=== PATIENT | female | born 1990 | race Hispanic/Latino ===

== ENCOUNTER 2017-03-16 15:16 | Emergency (ER) | payer OTHER ==
[~2017-03-16] VITALS: Ht 162.6 cm; Wt 87.0 kg
[2017-03-16 15:35] VITALS: BP 100/65; PULSE 58; RESP 16; O2SAT 100
[2017-03-16 16:19] LABS: Mean Corpuscular Hemoglobin 30.2 pg (27.0-35.0); Mean Corpuscular Volume 89.3 fL (81-100)
--- NOTE | 2017-03-16 16:33 | ED.REPORT ---
HPI-Preg Under 20 Weeks Date of Service Mar 16, 2017 ED Provider: Jorge High DO Pt is a 7 weeks 5 day (by her last menstrual period) 26 year old female who presents to the ED c/o "spotting" vaginal bleeding onset last night. She had an episode of bleeding 7 days ago, and some spotting last night and this morning.She describes pain as intermittent and a "cramping" sensation in her abdomen. She denies nausea, vomiting, chest pain, cough, rash, or SOB. She was sent from the urgent clinic with LLQ tenderness. This is her first time at the doctor for this . She took a test at home two weeks ago, and it was positive. Pt reports taking vitamins, but denies any other medications. She had a for her last after being in labor for 3 days with no dilation of her cervix. She also has a history of STDs which required antibiotic treatment. Nursing Notes Stated Complaint: ABDOMINAL PAIN Chief Complaint: Female Abdominal Pain Nursing Notes Reviewed: Yes Allergies: Coded Allergies: No Known Allergies (Unverified , 03/16/17) No Active Prescriptions or Reported Meds General Time Seen by Provider: 16:33 Chief Complaint Vaginal bleeding Hx Obtained From: Patient, Spouse Arrived By: Walk-in Onset Occurred: Yesterday Recent Healthcare: Recent doctor visit Similar Sx Previous: No Past Medical History Past Medical History 7 weeks 3 days Past Surgical History Reports: Smoking History Unknown if Ever Smoker Social History Other Social History: Good social support Ambulatory Status Independent Review of Systems Respiratory: Denies: Non-productive cough, Prod cough, clear, Shortness of breath Cardiovascular: Denies: Chest pain GI: Reports: Abdominal pain, Denies: Nausea, Vomiting Female: Reports: , Vaginal bleeding - abnl Skin: Denies Rash Complete sys rev & neg: except as marked. Physical Exam Initial Vital Signs Vital Signs (First) Date Time Temp Pulse Resp B/P Pulse Ox O2 Delivery O2 Flow Rate FiO2 03/16/17 15:35 37.1 58 16 100/65 100 Room Air Initial VS: Reviewed, Vital signs normal Head / Eyes: Atraumatic, Normocephalic, PERRL ENT: Mucous membranes moist, Conjunctiva normal, No scleral icterus Neck: Supple, Non-tender, Full range of motion Extremities: Vascular intact, Neuro intact, No swelling, No tenderness Skin: Warm, Dry, No cyanosis Neurologic: Alert, Oriented, Nonfocal Psychiatric: Mood/affect normal, Behavior normal, Normal thought content General/Constitutional: Awake, Alert Appearance / Presentation: Positive: Appears older than age, Cachectic, Cyanotic, Intoxicated, Obese, morbidly Abdomen: Atraumatic, No guarding, No rebound Tenderness/Guarding/Rebound: Positive: Tender suprapubic Lower abdomen pain, left worse than right Lower Extremity / Pelvis / MS: Atraumatic, Inspection NL, Full range of motion , No edema Interpretation & Diagnostics Urine dip:3+ urine otherwise normal Lab Results Interpretation Result Diagram: 03/16/17 1605 03/16/17 1605 Test 03/16/17 16:05 03/16/17 17:01 White Blood Count 7.6th/mm3 (3.8-10.1) Red Blood Count 4.11mil/mm3 (3.90-5.20) Hemoglobin 12.4g/dL (12.0-15.6) Hematocrit 36.7% (35.0-46.0) Mean Corpuscular Volume 89.3fL (81-100) Mean Corpuscular Hemoglobin 30.2pg (27.0-35.0) Mean Corpuscular Hemoglobin Concent 33.8% (32.0-37.0) Red Cell Distribution Width 12.1% (12.3-15.4) Platelet Count 298bil/L (150-400) Sodium Level 135mEq/L (134-144) Potassium Level 3.9mEq/L (3.5-5.2) Chloride Level 99mEq/L (97-108) Carbon Dioxide Level 22mmol/L (18-29) Blood Urea Nitrogen 7mg/dL (6-20) Creatinine 0.48mg/dL (0.57-1.00) Estimat Glomerular Filtration Rate 224mL/min (>59) Glucose Level 96mg/dL (60-99) Calcium Level 9.5mg/dL (8.5-10.1) Total Bilirubin 0.3mg/dL (0.0-1.2) Aspartate Amino Transf (AST/SGOT) 17U/L (0-50) Alanine Aminotransferase (ALT/SGPT) 23U/L (0-32) Alkaline Phosphatase 72U/L (25-150) Total Protein 7.8g/dL (6.4-8.4) Albumin 4.1g/dL (3.4-5.0) HCG Beta Subunit [id number]/mL Hold Hdz Top Tube Received (Received) Hold Urine Received (Received) US Focused OB IMPRESSION: 1. Single viable intrauterine gestation with an estimated gestational age of 7 weeks and 3 days. 2. Bilateral hypoechoic ovarian nodules. Dictated by: Taco Martines M.D. on 03/16/2017 at 19:15 Exam Performed by: Radiologist Re-Eval/Medical Decision Med Decision/Clinical Course No evidence of ectopic on US, Normal FHTs. US dates concordant with LMP. Pt reassured and advised to f/u with [facility] DEVELOPMENT REPRESENTATIVE. Source of Hx: Old records Re-Evaluation/Progress : Time of Eval: 18:57 Patient Status: Condition improved Re-Evaluation/Progress Note: Patient rechecked. Discussed plan for discharge. Patient understands and agrees with plan. F/U instructions and RTER warnings given. All questions addressed at this time. Counseled Regarding: Diagnosis, Lab results, Need for follow-up, When/why to return to ED Discharge & Departure Primary Impression: Threatened Additional Impression: Vaginal bleeding before 22 weeks gestation Disposition: Home Discharge Condition All VS Reviewed: Yes Condition: Stable Patient Instructions: Abdominal Pain in (ED) Additional Instructions: Thank you for trusting us with your care. Your emergency room evaluation today returned reassuring. Your ultrasound shows that your baby is okay and is in the proper location. Please follow-up with an OB doctor next week. Return to the ER for new or worsening symptoms Referrals: [facility] Scribe Attestation Portions of this note were transcribed by Myrna Lehman and Sarita Perez. I, Dr. High, personally performed the history, physical exam and medical decision-making; I reviewed and confirmed the accuracy of the information in the transcribed note. copies to: [facility] Jorge High DO Mar 16, 2017 16:33 Myrna Lehman Mar 16, 2017 17:03 SARITA PEREZ Mar 16, 2017 18:00
--- NOTE | 2017-03-16 19:20 | DRSVH ---
+/- 7 days from 14 weeks to 15 weeks 6 days gestation, +/- 10 days from 16 weeks to 21 weeks 6 days g estation, +/- 2 weeks from 22 weeks to 27 weeks 6 days gestation, +/- 3 weeks for 28 weeks gestation or later. PROCEDURE: US OB<14 WKS INDICATIONS: 7.5WKS, LLQ ABD PAIN, BLEEDING, H/O PID, R/O ECTOP OUTSIDE/PRIOR DATING DATA: Last menstrual period (LMP): 01/22/2017. LMP-based estimated date of delivery (MERARI): 10/29/2017. First dating scan (date and location): 03/16/2017. Estimated date of delivery (MERARI) from first dating scan: 10/30/2017. TECHNIQUE: Real-time scanning was performed of the fetus and maternal pelvic organs, with image documentation. Endovaginal scanning was also performed to better visualize the fetus and maternal ovaries. COMPARISON: None. FINDINGS: Embryo: OB-HELIX COIL WINDER Ultrasound Procedure Report Early Gestation [facility] [place] Rump Length: 1.21 cm Gestational Age (CRL): 7 weeks, 3 days Summary Fetus Summary Heart Rate: 158 bpm Comments: A normal yolk sac is noted. No perigestational bleeds. Measurement variability in dating: +/- 4 weeks by LMP, +/- 7 days by mean sac diameter (use before 6 weeks gestation if crown-rump length not able to be measured), +/- 5 days by crown-rump length (up t o 8 weeks 6 days gestation), +/- 7 days by crown-rump length (from 9 weeks to 13 weeks 6 days gestati on). Maternal organs: Ovaries demonstrate a 2.4 cm right ovarian hypoechoic nodule and a 3.0 x 2.7 cm lef t ovarian hypoechoic nodule. Limited images through the kidneys demonstrate no hydronephrosis. IMPRESSION: 1. Single viable intrauterine gestation with an estimated gestational age of 7 weeks and 3 days. 2. Bilateral hypoechoic ovarian nodules. Dictated by: Taco Martines M.D. on 03/16/2017 at 19:15 Approved by: Taco Martines M.D. on 03/16/2017 at 19:18
[2017-03-16 19:22] VITALS: BP 97/56; PULSE 76; O2SAT 99
[2017-03-16 19:27] VITALS: BP 97/56; PULSE 76; O2SAT 99
== END 2017-03-16 19:28 | disposition home or self-care (01) ==
LOC: SED 15:16
DX: O20.0 Threatened abortion (principal); Z3A.01 Less than 8 weeks gestation of pregnancy